=== PATIENT | female | born 1985 ===

== ENCOUNTER 2018-08-19 17:00 | Inpatient (IN) | payer MEDICAID ==
[2018-08-19 17:56] VITALS: BMI 37.1
[2018-08-19 18:13] LABS: BASO % 0.4 % (0.0-2.0); EOS # 0.2 K/uL (0.0-0.7); EOS % 2.1 % (0.0-4.0); HEMOGLOBIN 9.6 g/dL (12.0-16.0); LYMPH # 1.5 K/uL (1.0-4.3); LYMPH % 19.3 % (20.0-40.0); MEAN CELL VOLUME 74.1 fl (81.0-99.0); MEAN CORPUSCULAR HEMOGLOBIN 22.7 pg (27.0-31.0); MEAN CORPUSCULAR HGB CONC 30.7 g/dL (33.0-37.0); MEAN PLATELET VOLUME 10.2 fl (7.2-11.7); MONO # 0.9 K/uL (0.0-0.8); MONO % 11.2 % (0.0-10.0); NEUT # 5.1 K/uL (1.8-7.0); NRBC % 0.1 % (0.0-0.0); RBC 4.22 Mil/uL (3.80-5.20); RED CELL DISTRIBUTION WIDTH 17.8 % (11.5-14.5); WHITE BLOOD COUNT 7.6 K/uL (4.8-10.8)
[2018-08-19] MEDS: Lactated Ringer's 1,000 ML IV SCH (18:30)
[2018-08-19] MEDS ORDERED: Fentanyl/Bupivacaine HCl 250 ML EPI ONE (20:57)
--- NOTE | 2018-08-19 23:41 | CP.PCM.CON ---
History of Present Illness - History of Present Illness History of Present Illness: Attending: Dominik Simmons MD Reason for Consult: Abnormal EKG Chief complaint: Patient in active labor The patient was seen and examined In the L&D Unit HPI: This is a 32 years old female with medical hx of Hyperthyroidism not on tr eatment, has a 39 weeks Primipara in labor and partially dilated. She is on the court recording monitor which showed an irregular rhythm. A 12 lead EKG was done, which I was consulted to analyze. This showed a normal sinus rhythm with multiple PVC in bigeminy and couplets. The Patient referred no chest pain, palpitation nor SOB. No headache, dizziness, nausea nor vomits. Decision was made by Dr Zhong to Consult with the patch sander. PMH: Hyperthyroidism , not on treatment; PSH: Denies SH: Never smoked, no illegal drug use, No Alcohol FH: States, No known medical hx Allergies: NKDA Medication: Reviewed Review of Systems - Constitutional Constitutional: absent: Anorexia, Chills, Fatigue, Fever, Headache, Malaise - EENT Eyes: absent: Blurred Vision, Diplopia, Floaters, Requires Corrective Lenses, Spots in Vision Ears: absent: Decreased Hearing, Ear Discharge, Tinnitus Nose/Mouth/Throat: absent: Epistaxis, Nasal Congestion, Nasal Discharge, Sinus Pain, Sinus Pressure - Cardiovascular Cardiovascular: absent: Chest Pain, Dyspnea, Edema - Respiratory Respiratory: absent: Cough, Dyspnea, Wheezing, Stridor - Gastrointestinal Gastrointestinal: Abdominal Pain. absent: Constipation, Diarrhea - Genitourinary Genitourinary: absent: Dysuria, Flank Pain, Urinary Frequency - Musculoskeletal Musculoskeletal: absent: Arthralgias - Integumentary Integumentary: absent: Pruritus, Rash, Sores, Striae, Swelling - Neurological Neurological: absent: Confusion, Focal Weakness, Weakness - Psychiatric Psychiatric: absent: Anxiety, Depression, Panic Attacks - Endocrine Endocrine: absent: Palpitations, Polydipsia, Polyphagia, Polyuria - Hematologic/Lymphatic Hematologic: absent: Easy Bleeding, Easy Bruising Past Patient History - Past Medical History & Family History Past Medical History?: Yes - Past Social History Smoking Status: Never Smoked Chewing Tobacco Use: No Cigar Use: No Alcohol: None Drugs: Denies - CARDIAC Hx Cardiac Disorders: No - PULMONARY Hx Respiratory Disorders: No - NEUROLOGICAL Hx Neurological Disorder: No - HEENT Hx HEENT Problems: No - RENAL Hx Chronic Kidney Disease: No - ENDOCRINE/METABOLIC Hx Hyperthyroidism: Yes (Not on treatment) - HEMATOLOGICAL/ONCOLOGICAL Hx Blood Disorders: No - INTEGUMENTARY Hx Dermatological Problems: No - MUSCULOSKELETAL/RHEUMATOLOGICAL Hx Musculoskeletal Disorders: No - GASTROINTESTINAL Hx Gastrointestinal Disorders: No - GENITOURINARY/GYNECOLOGICAL Hx Genitourinary Disorders: No - PSYCHIATRIC Hx Psychophysiologic Disorder: No - SURGICAL HISTORY Hx Surgeries: No Meds Allergies/Adverse Reactions: Allergies Allergy/AdvReac Type Severity Reaction Status Date / Time No Known Allergies Allergy Verified 08/19/18 17:27 - Medications Medications: Current Medications Lactated Ringer's (Lactated Ringer's) 1,000 mls @ 125 mls/hr IV .Q8H GARIMA Last Admin: 08/19/18 18:30 Dose: 125 mls/hr Fentanyl/Bupivacaine HCl (Marcaine 0.125% With Fentanyl 2 Mcg/Ml Premix) 250 mls @ 10 mls/hr EPI .Q24H ONE Stop: 08/20/18 20:56 Physical Exam - Constitutional Appears: No Acute Distress - Head Exam Head Exam: ATRAUMATIC, NORMAL INSPECTION, NORMOCEPHALIC - Eye Exam Eye Exam: EOMI Pupil Exam: NORMAL ACCOMODATION, PERRL - ENT Exam ENT Exam: Mucous Membranes Moist, Normal Exam, Normal External Ear Exam - Neck Exam Neck exam: Positive for: Full Rom, Normal Inspection. Negative for: Lymphadenopathy, Tenderness - Respiratory Exam Respiratory Exam: Clear to Auscultation Bilateral. absent: Rales, Rhonchi, Wheezes - Cardiovascular Exam Cardiovascular Exam: REGULAR RHYTHM, RRR, +S1, +S2 - GI/Abdominal Exam Additional comments: Full abdomen with monitor attached - Rectal Exam Rectal Exam: Deferred - Extremities Exam Extremities exam: Positive for: full ROM, normal inspection - Back Exam Back exam: NORMAL INSPECTION. absent: CVA tenderness (L), CVA tenderness (R) - Neurological Exam Neurological exam: Alert, CN II-XII Intact, Oriented x3, Reflexes Normal - Psychiatric Exam Psychiatric exam: Normal Affect, Normal Mood - Skin Skin Exam: Dry, Normal Color, Warm Results - Labs Result Diagrams: 08/20/18 02:28 08/20/18 02:28 Labs: Laboratory Results - last 24 hr 08/19/18 08/19/18 08/19/18 17:49 17:49 17:49 WBC 7.6 RBC 4.22 Hgb 9.6 L Hct 31.3 L MCV 74.1 L MCH 22.7 L MCHC 30.7 L RDW 17.8 H Plt Count 185 MPV 10.2 Neut % (Auto) 67.0 Lymph % (Auto) 19.3 L [place] % (Auto) 11.2 H Eos % (Auto) 2.1 Baso % (Auto) 0.4 Neut # (Auto) 5.1 Lymph # (Auto) 1.5 [place] # (Auto) 0.9 H Eos # (Auto) 0.2 Baso # (Auto) 0.0 HIV-1 Ab Rapid Screen Non reactive Blood Type O POSITIVE Blood Type Confirm Antibody Screen Negative BBK History Checked No verified bt 08/19/18 18:55 WBC RBC Hgb Hct MCV MCH MCHC RDW Plt Count MPV Neut % (Auto) Lymph % (Auto) [place] % (Auto) Eos % (Auto) Baso % (Auto) Neut # (Auto) Lymph # (Auto) [place] # (Auto) Eos # (Auto) Baso # (Auto) HIV-1 Ab Rapid Screen Blood Type Blood Type Confirm O POSITIVE Antibody Screen BBK History Checked - EKG Data EKG comments: 08/19/2018 Sinus Rhythm 98/min with multiple PVC in bigemini and couplets Assessment & Plan - Assessment and Plan (Free Text) Assessment: #. Cardiac Arrhythmia with Ventricle bigeminy and couplets #. Microcytic Anemia #. Full Term in labor Plan: 32 years old female with medical hx of Hyperthyroidism not on treatment,with 39 weeks in labor. I was consulted because of an abnormal EKG. This showed a sinus rhythm with multiple PVC in bigeminy and couplets. The Patient referred no chest pain, palpitation nor SOB. No headache, dizziness, nausea nor vomits. Decision was made by Dr Zhong to Consult with the patch sander. #. Cardiac Arrhythmia with Ventricle bigeminy and couplets. r/o CAD, Cardiomyopathy, Electrolyte imbalance, Medication, anxiety. I discussed the findings on the EKG with Dr Zhong and Dr Gleason. Dr Overton advised that as the patient's vital signs were stable, that the patient should should be taken imme diately for a Cesarian Section, and be transferred to the ICU or telemetry Unit post surgery. - Consult Dr Gleason patch sander. - Oxygen - Transfer to ICU post delivery - CMP/ CBC/ PT/PTT/TSH/magnesium /Phosphorous; - EKG/ ECHO for wall motion and chamber size, #. Microcytic Anemia. Probably iron deficiency anemia - Iron panel - follow Hb #. Full Term in labor - Labour and delivery team Management #.DVT prophylaxis with SCD and lovenox. #. Code Status: Full - Date & Time Date: 08/19/18 Time: 23:41
[2018-08-19] MEDS ORDERED: cefOXitin IV 1 gm in Dextrose 1 GM/50 ML BAG IVPB ONE (23:46)
[2018-08-19] MEDS ORDERED: ePHEDrine 50 mg/ml Inj ONE (23:55)
[2018-08-19] MEDS ORDERED: Phenylephrine 10 mg/ml Inj ONE (23:55)
[2018-08-19] MEDS ORDERED: Morphine 1 mg/ml preservative-free Inj(Duramorph) ONE (23:55)
[2018-08-19] MEDS ORDERED: Lidocaine 2% PF (10 ml) Amp ONE (23:56)
--- NOTE | 2018-08-20 00:07 | OBPN ---
Datetime: 08/19/2018 23:54 IP Procedures Other: EKG/medical consult/flash welding machine operator consult IP Progress Impression Other: maternal abnormal EKG IP Informed Consent Obtain: Section Delivery IP Progress Plan: Deliver- Section Membranes, Provider: Ruptured Contraction Comments Provider: irregular FHR - Baseline A Provider: 150 Gestation - Est Wks by US: 39.2 Presentation-Admit: cephalic IP Progress Note Comment: maternal pulse was irregular and EKG done showing multiple and persistent PVC's and sinus arrythmias and medical consult given and flash welding machine operator consult obtained and both sugge st to deliver now by C/S since during full labor cardiac status may deteriorate Discussed this with p atient and explained the situation and she and her partner decided to have C/S done now Pt explained the procedure and possible risks and complication and elects to have abdominal delivery at this time Informed consent was obtain and pt after C/S will go to Telemetry or ICU for recovery and monitoring cardiac status. Vital Signs Provider: Reviewed Vital Signs Provider Details: Abnormal maternal EKG NICHD Accel Fetus A IP Provider: 10X10 NICHD Variability Prov Fetus A: Moderate 6-25bpm Dilatation, Provider: 4 Effacement, Provider: 80 Station, Provider: -2
[2018-08-20] MEDS ORDERED: Lidocaine 2% MPF (5 ml) Inj ONE (00:10)
[2018-08-20] MEDS ORDERED: OXYTOCIN/0.9 % NS 20 UNIT/1,000 ML BAG IV ONE ×2 (00:19→02:07)
[2018-08-20] MEDS ORDERED: Oxytocin 30 UNIT 30 UNITS/500 ML BAG IV ONE ×2 (00:19→00:51)
[2018-08-20] MEDS: cefOXitin IV 1 gm in Dextrose 1 GM/50 ML BAG IVPB SCH ×3 (00:20→17:11)
[2018-08-20] MEDS ORDERED: DiphenhydrAMINE 50 mg/ml Inj IVP PRN (01:51)
--- NOTE | 2018-08-20 02:03 | OBDS ---
MATERNAL INFORMATION Estimated Blood Loss (ml): 850cc Maternal Complications: Other Other Maternal Complications: abnormal maternal EKG/ persistent PVC Provider Comments: see Dictated surgeons note LABOR SUMMARY EDC: 08/24/2018 00:00 LABOR INFORMATION Reason for Induction: Not Applicable Onset of Labor: 08/19/2018 15:30 Group B Beta Strep: Negative Steroids Given: None Reason Steroids Not Administered: Not Applicable MEMBRANES Membranes Rupture Method: Spontaneous VAGINAL DELIVERY Episiotomy: None Laceration Extension: N/A Laceration Type: None Laceration Repair: Not Applicable Sponge Count Correct: Yes Sharps Count Correct: Yes Count Comment: count correct x4 CSECTION DELIVERY Primary Indication: Maternal abnormal EKG/persistent maternal PVC Secondary Indication: maternal request CSection Incision: Lower Uterine Transverse Uterine Closure: Double-layer closure BABY A INFORMATION Forceps: N/A Shoulder Dystocia : No PRESENTATION/POSITION BABY A Presentation: cephalic Cephalic Presentation: Vertex Vertex Position: Left Occipital Posterior Breech Presentation: N/A
[2018-08-20 02:34] LABS: BASO # 0.1 K/uL (0.0-0.2); BASO % 0.9 % (0.0-2.0); EOS # 0.1 K/uL (0.0-0.7); EOS % 0.9 % (0.0-4.0); HEMOGLOBIN 8.8 g/dL (12.0-16.0); LYMPH # 1.2 K/uL (1.0-4.3); LYMPH % 9.3 % (20.0-40.0); MEAN CELL VOLUME 76.6 fl (81.0-99.0); MEAN CORPUSCULAR HEMOGLOBIN 22.9 pg (27.0-31.0); MEAN CORPUSCULAR HGB CONC 29.9 g/dL (33.0-37.0); MEAN PLATELET VOLUME 10.1 fl (7.2-11.7); MONO # 0.9 K/uL (0.0-0.8); MONO % 7.2 % (0.0-10.0); NEUT # 10.6 K/uL (1.8-7.0); NEUT % 81.7 % (50.0-75.0); PLATELET COUNT 155 K/uL (130-400); RBC 3.86 Mil/uL (3.80-5.20)
[2018-08-20 02:37] LABS: PROTHROMBIN TIME 11.3 Seconds (9.8-13.1)
[2018-08-20 02:40] LABS: PARTIAL THROMBOPLASTIN TIME 20.8 Seconds (25.6-37.1)
[2018-08-20 02:41] LABS: ALB/GLOB RATIO 0.8 (1.0-2.1); ALBUMIN 2.9 g/dL (3.5-5.0); ALT/SGPT 13 U/L (9-52); AST/SGOT 22 U/L (14-36); BLOOD UREA NITROGEN 7 mg/dl (7-17); CALCIUM 8.2 mg/dL (8.4-10.2); GFR NON-AFRICAN AMERICAN > 60
[2018-08-20 02:49] LABS: IRON 20 ug/dL (37-170)
[2018-08-20 02:59] LABS: % IRON SATURATION 4 % (20-55); TOTAL IRON BINDING CAPACITY 471 ug/dL (250-450)
[2018-08-20 04:52] LABS: BANDS 1 % (0-2); LYMPHOCYTE 8 % (20-50); MONOCYTE 6 % (0-10); NEUTROPHIL 85 % (42-75); TOTAL CELLS COUNTED 100
[2018-08-20 04:53] LABS: PLATELET ESTIMATE NORMAL (NORMAL)
[2018-08-20 04:54] LABS: ACANTHOCYTES SLIGHT; ANISOCYTOSIS SLIGHT; HYPOCHROMIC MODERATE
[2018-08-20] MEDS ORDERED: Magnesium Sulfate 2 gm/50 ml 2 GM/50 ML BAG IVPB ONE (07:15)
--- NOTE | 2018-08-20 07:54 | OBPPN ---
Datetime: 08/20/2018 07:47 PP Pain Prov: Within normal limits PP Pain Prov comment: no SOB, chest or leg pains PP Nausea Prov: Denies PP BM Prov: No PP Breasts Prov: Normal PP Heart Prov: Abnormal PP Lungs Prov: Normal PP Abdomen/Uterus Prov: Abnormal PP Lochia Prov: Normal PP Vulva/Perineum Prov: Normal PP CVA Tenderness Prov: Normal PP Extremities Prov: Normal PP C/S Incision Prov: Normal PP Progress Prov: Normal PP Comments Phys Exam Prov: breast not engorged, soft NT; Abd soft not distended fundus firm at umb Dressing intact no sign of active bleeding Ext no calf tenderness Venodyne in place PP Plan Prov: Continue present management PP Impression Other Prov: maternal persistent PVC's possible cardiomyopathy PP Plan Other Prov: evaluation by local company tanker driver PP Progress Note Prov: Continue po care and cardiology evaluation Vital Signs Provider PP: Reviewed
[2018-08-20] MEDS: Oxycodone/Acetaminophen 5/325 mg Tab PO PRN ×3 (08:28→19:12)
--- NOTE | 2018-08-20 09:22 | CP.PCM.CON ---
History of Present Illness - History of Present Illness History of Present Illness: This 32-year-old prima para underwent a section after she was found to have frequent ventricular ectopy on an electrocardiogram as she went into labor. There were occasional ventricular couplets. There is no prior history of cardiac illness prior to her and her describes an extremely active lifestyle which her work required. There is no prior history of rheumatic heart disease or palpitations or symptoms of congestive cardiac failure. The patient was not on any medications and had not required any hospitalization. One of her grandmothers had cardiac illness though she did not because of it. Otherwise there is no family history of vascular disease. Physical examination shows a young -[place] female who has recently undergone a section. She was alert awake coherent afebrile. Her heart rate was 80 bpm regular and her blood pressure was 124/74 mmHg. Her jugular venous pressure was not elevated and there was no edema over lower extremities. The pedal pulses were well felt. First and second heart sounds were normal. There was no murmur or gallop. No rales were audible. Her electrocardiogram at midnight showed sinus rhythm with frequent immature ventricular beats including a single couplet. Her cardiogram this morning shows sinus rhythm with ventricular ectopy. Otherwise the electric cardiogram did not show any abnormality. Her lab data was noted. She had microcytic hypochromic anemia with normal TSH. Impression: Frequent ventricular ectopy without any evidence of underlying cardiovascular disease. The patient will undergo an echocardiogram to evaluate her left ventricular systolic function. In absence of LV dysfunction her ventricular ectopy will have a benign significance and no further intervention would be required. Past Patient History - Past Medical History & Family History Past Medical History?: Yes - Past Social History Smoking Status: Never Smoked Chewing Tobacco Use: No Cigar Use: No Alcohol: None Drugs: Denies - CARDIAC Hx Cardiac Disorders: No - PULMONARY Hx Respiratory Disorders: No - NEUROLOGICAL Hx Neurological Disorder: No - HEENT Hx HEENT Problems: No - RENAL Hx Chronic Kidney Disease: No - ENDOCRINE/METABOLIC Hx Hyperthyroidism: Yes (Not on treatment) - HEMATOLOGICAL/ONCOLOGICAL Hx Blood Disorders: No - INTEGUMENTARY Hx Dermatological Problems: No - MUSCULOSKELETAL/RHEUMATOLOGICAL Hx Musculoskeletal Disorders: No - GASTROINTESTINAL Hx Gastrointestinal Disorders: No - GENITOURINARY/GYNECOLOGICAL Hx Genitourinary Disorders: No - PSYCHIATRIC Hx Psychophysiologic Disorder: No - SURGICAL HISTORY Hx Surgeries: No - ANESTHESIA Hx Anesthesia: No Hx Anesthesia Reactions: No Meds Allergies/Adverse Reactions: Allergies Allergy/AdvReac Type Severity Reaction Status Date / Time No Known Allergies Allergy Verified 08/19/18 17:27 - Medications Medications: Current Medications Diphenhydramine HCl (Benadryl) 50 mg IVP Q6 PRN PRN Reason: Itching / Pruritus Lactated Ringer's (Lactated Ringer's) 1,000 mls @ 125 mls/hr IV .Q8H [facility] Last Admin: 08/19/18 18:30 Dose: 125 mls/hr Fentanyl/Bupivacaine HCl (Marcaine 0.125% With Fentanyl 2 Mcg/Ml Premix) 250 mls @ 10 mls/hr EPI .Q24H ONE Stop: 08/20/18 20:56 Cefoxitin Sodium (Mefoxin Iv 1 Gm Duplex) 1 gm in 50 mls @ 50 mls/hr IVPB Q8 GARIMA; Protocol Last Admin: 08/20/18 00:20 Dose: 50 mls/hr OXYTOCIN/0.9 % NS (Oxytocin 20 Unit/1000 Ml-Ns) 20 unit in 1,000 mls @ 125 mls/hr IV .Q8H ONE Stop: 08/20/18 10:06 Last Admin: 08/20/18 02:22 Dose: 125 mls/hr Ibuprofen (Motrin Tab) 600 mg PO Q6H PRN PRN Reason: Pain, Mild (1-3) Ketorolac Tromethamine (Toradol) 30 mg IVP Q6 PRN PRN Reason: Pain, moderate (4-7) Last Admin: 08/20/18 02:52 Dose: 30 mg Ondansetron HCl (Zofran Inj) 4 mg IVP Q6 PRN PRN Reason: Nausea/Vomiting Oxycodone/Acetaminophen (Percocet 5/325 Mg Tab) 1 tab PO Q4 PRN PRN Reason: Pain, moderate (4-7) Stop: 08/23/18 02:08 Last Admin: 08/20/18 08:28 Dose: 1 tab Results - Vital Signs Recent Vital Signs: Last Vital Signs Temp 98.2 F 08/20/18 08:00 Pulse 89 08/20/18 08:00 Resp 19 08/20/18 08:00 BP 112/65 08/20/18 08:00 Pulse Ox 100 08/20/18 08:00 - Labs Result Diagrams: 08/20/18 02:28 08/20/18 02:28 Labs: Laboratory Results - last 24 hr 08/19/18 08/19/18 08/19/18 17:49 17:49 17:49 WBC 7.6 RBC 4.22 Hgb 9.6 L Hct 31.3 L MCV 74.1 L MCH 22.7 L MCHC 30.7 L RDW 17.8 H Plt Count 185 MPV 10.2 Neut % (Auto) 67.0 Lymph % (Auto) 19.3 L [place] % (Auto) 11.2 H Eos % (Auto) 2.1 Baso % (Auto) 0.4 Neut # (Auto) 5.1 Lymph # (Auto) 1.5 [place] # (Auto) 0.9 H Eos # (Auto) 0.2 Baso # (Auto) 0.0 Neutrophils % (Manual) Band Neutrophils % Lymphocytes % (Manual) Monocytes % (Manual) Platelet Estimate Hypochromasia (manual) Anisocytosis (manual) Acanthocytes (Spur) PT INR APTT Sodium Potassium Chloride Carbon Dioxide Anion Gap BUN Creatinine Est GFR ( Amer) Est GFR (Non-Af Amer) Random Glucose Calcium Phosphorus Magnesium Iron TIBC % Saturation Total Bilirubin AST ALT Alkaline Phosphatase Total Protein Albumin Globulin Albumin/Globulin Ratio TSH 3rd Generation HIV-1 Ab Rapid Screen Non reactive Blood Type O POSITIVE Blood Type Confirm Antibody Screen Negative BBK History Checked No verified bt 08/19/18 08/20/18 08/20/18 18:55 02:28 02:28 WBC 13.0 H D RBC 3.86 Hgb 8.8 L Hct 29.6 L MCV 76.6 L D MCH 22.9 L MCHC 29.9 L RDW 18.0 H Plt Count 155 MPV 10.1 Neut % (Auto) 81.7 H Lymph % (Auto) 9.3 L [place] % (Auto) 7.2 Eos % (Auto) 0.9 Baso % (Auto) 0.9 Neut # (Auto) 10.6 H Lymph # (Auto) 1.2 [place] # (Auto) 0.9 H Eos # (Auto) 0.1 Baso # (Auto) 0.1 Neutrophils % (Manual) 85 H Band Neutrophils % 1 Lymphocytes % (Manual) 8 L Monocytes % (Manual) 6 Platelet Estimate Normal Hypochromasia (manual) Moderate Anisocytosis (manual) Slight Acanthocytes (Spur) Slight PT INR APTT Sodium 134 Potassium 3.7 Chloride 109 H Carbon Dioxide 18 L Anion Gap 11 BUN 7 Creatinine 0.5 L Est GFR ( Amer) > 60 Est GFR (Non-Af Amer) > 60 Random Glucose 101 Calcium 8.2 L Phosphorus 4.3 Magnesium 1.5 L Iron TIBC % Saturation Total Bilirubin 0.2 AST 22 ALT 13 Alkaline Phosphatase 155 H Total Protein 6.2 L Albumin 2.9 L Globulin 3.4 Albumin/Globulin Ratio 0.8 L TSH 3rd Generation 1.64 HIV-1 Ab Rapid Screen Blood Type Blood Type Confirm O POSITIVE Antibody Screen BBK History Checked 08/20/18 08/20/18 02:28 02:28 WBC RBC Hgb Hct MCV MCH MCHC RDW Plt Count MPV Neut % (Auto) Lymph % (Auto) [place] % (Auto) Eos % (Auto) Baso % (Auto) Neut # (Auto) Lymph # (Auto) [place] # (Auto) Eos # (Auto) Baso # (Auto) Neutrophils % (Manual) Band Neutrophils % Lymphocytes % (Manual) Monocytes % (Manual) Platelet Estimate Hypochromasia (manual) Anisocytosis (manual) Acanthocytes (Spur) PT 11.3 INR 1.0 APTT 20.8 L Sodium Potassium Chloride Carbon Dioxide Anion Gap BUN Creatinine Est GFR ( Amer) Est GFR (Non-Af Amer) Random Glucose Calcium Phosphorus Magnesium Iron 20 L TIBC 471 H % Saturation 4 L Total Bilirubin AST ALT Alkaline Phosphatase Total Protein Albumin Globulin Albumin/Globulin Ratio TSH 3rd Generation HIV-1 Ab Rapid Screen Blood Type Blood Type Confirm Antibody Screen BBK History Checked
--- NOTE | 2018-08-20 09:44 | CP.PCM.PCO ---
Physician Communication Note - Physician Communication Note Physician Communication Note: PCP is Dr. Alex Mason in [place], service changed to Dr. Mark Vela.
[2018-08-20] MEDS: Lactated Ringer's 1,000 ML IV SCH ×3 (10:56→19:50)
--- NOTE | 2018-08-20 14:34 | CARD ---
APPROVED REPORT Date of service: 08/20/2018 EKG Measurement Heart [id number] <Conclusion> Sinus rhythm with frequent premature ventricular complexes in a pattern of bigeminy Abnormal Electrocardiogram
--- NOTE | 2018-08-20 14:35 | CARD ---
APPROVED REPORT Date of service: 08/19/2018 EKG Measurement Heart [id number] OR [id number] <Conclusion> Sinus rhythm with frequent and consecutive premature ventricular complexes Abnormal ECG
[2018-08-20] MEDS ORDERED: Oxycodone/Acetaminophen 5/325 mg Tab PO STA (15:17)
--- NOTE | 2018-08-20 19:24 | PN ---
DATE: 08/20/2018 LOCATION: The patient in ICU bed 431. TIME SPENT: 35 minutes. The patient seen and evaluated at the bedside. Past medical, surgical, family, social history reviewed. Case was discussed in multidisciplinary ICU rounds this morning. Events since admission noted, a 32-year-old female para 0, 1 now 30 weeks gestation in active labor noted to have bigeminy with couplets seen by Dr. Uriel Meza. The patient underwent successfully and admitted to ICU overnight, rhythm sinus with ectopic, normotensive, afebrile. Denies chest pain or palpitation. No shortness of breath. No abdominal discomfort except for the incisional pain. PAST MEDICAL HISTORY: Significant for thyroid disease. No history of hypertension, diabetes or coronary artery disease. PHYSICAL EXAMINATION: GENERAL: Young well-built female in no distress. VITAL SIGNS: Temperature 98.2, heart rate 89 regular with ectopic, blood pressure 112/65, mean arterial pressure 80, respiratory rate 19 to 27 thoracoabdominal saturation 100% on oxygen 2 liters nasal cannula. Intake 625, output 350, positive balance 275. Weight 230 pounds. HEAD, EYES, EARS, NOSE AND THROAT: Pupils reactive. Conjunctivae pink. Sclera white. NECK: Supple. Trachea is central. CHEST; Bilateral breath sounds. Clear to auscultation. HEART: Rhythm regular. S1 and S2 normal intensity. No S3, S4 or gallop. No audible murmur. ABDOMEN: Bowel sounds present, soft. Liver and spleen are not palpable. Bladder not distended. EXTREMITIES: Unremarkable. NEUROLOGIC: Nonfocal. CURRENT MEDICATIONS: Cefoxitin 1 gm every 8 hours x3 doses, Benadryl 50 mg IV every 6 hours p.r.n. for itching pruritus, fentanyl/bupivacaine/Marcaine 0.125% with fentanyl 2 mcg at 10 mL per hour, Motrin 600 mg p.o. every 6, hours, Toradol 30 mg IV every 6 hours p.r.n., Ringer's Lactate 1000 mL at 125 mL per hour, Zofran 4 mg IV every 6 hours, Percocet 5/325 mg p.o. every 4 hours. IMPRESSION: A 32-year-old normal female status post section noted to have ectopic with couplets during active labor, status post section, currently hemodynamically stable ,still with couplets, normotensive. Seen by cardiology consult noted recommendation. Echocardiogram pending. Post section at [facility] within normal limits. Anemia secondary to hemodilution and/or iron deficiency on iron supplement. We will start on deep venous thrombosis prophylaxis once cleared by WORKERS COMPENSATION CLAIMS EXAMINER. Continue IV hydration. Keep head about 30 degree up needed for postop incisional pain. Cesario Musa MD
[2018-08-21] MEDS: cefOXitin IV 1 gm in Dextrose 1 GM/50 ML BAG IVPB SCH (00:59)
[2018-08-21] MEDS: Oxycodone/Acetaminophen 5/325 mg Tab PO PRN ×2 (02:31→08:46)
[2018-08-21] MEDS: Lactated Ringer's 1,000 ML IV SCH (04:11)
[2018-08-21 05:32] LABS: BASO % 0.2 % (0.0-2.0); EOS # 0.1 K/uL (0.0-0.7); EOS % 1.2 % (0.0-4.0); HEMOGLOBIN 7.5 g/dL (12.0-16.0); LYMPH # 1.3 K/uL (1.0-4.3); LYMPH % 10.2 % (20.0-40.0); MEAN CELL VOLUME 74.3 fl (81.0-99.0); MEAN CORPUSCULAR HEMOGLOBIN 22.5 pg (27.0-31.0); MEAN CORPUSCULAR HGB CONC 30.3 g/dL (33.0-37.0); MEAN PLATELET VOLUME 9.9 fl (7.2-11.7); MONO # 1.3 K/uL (0.0-0.8); MONO % 10.2 % (0.0-10.0); NEUT # 9.7 K/uL (1.8-7.0); NEUT % 78.2 % (50.0-75.0); RBC 3.32 Mil/uL (3.80-5.20); RED CELL DISTRIBUTION WIDTH 17.6 % (11.5-14.5); WHITE BLOOD COUNT 12.5 K/uL (4.8-10.8)
[2018-08-21 05:42] LABS: ALB/GLOB RATIO 0.8 (1.0-2.1); ALBUMIN 2.5 g/dL (3.5-5.0); ALT/SGPT 26 U/L (9-52); AST/SGOT 24 U/L (14-36); BLOOD UREA NITROGEN 4 mg/dl (7-17); CALCIUM 8.1 mg/dL (8.4-10.2); GFR NON-AFRICAN AMERICAN > 60
--- NOTE | 2018-08-21 07:45 | CARD ---
APPROVED REPORT Date of service: 08/20/2018 EXAM: Two-dimensional and M-mode echocardiogram with Doppler and color Doppler. Other Information Quality : GoodRhythm : NSR INDICATION Abnormal EKG/Arrhythmia 2D DIMENSIONS IVSd1.14 (0.7-1.1cm)LVDd5.57 (3.9-5.9cm) LVOT Diameter2.21 (1.8-2.4cm)PWd1.37 (0.7-1.1cm) IVSs1.10 (0.8-1.2cm)LVDs4.52 (2.5-4.0cm) FS (%) 18.9 %PWs1.46 (0.8-1.2cm) M-Mode DIMENSIONS Left Atrium (MM)3.71 (2.5-4.0cm)IVSd1.21 (0.7-1.1cm) Aortic Root3.21 (2.2-3.7cm)LVDd5.68 (4.0-5.6cm) Aortic Cusp Exc.2.24 (1.5-2.0cm)PWd1.12 (0.7-1.1cm) IVSs1.59 cmFS (%) 22 % LVDs4.44 (2.0-3.8cm)PWs1.41 cm Mitral Valve E/A ratio0.0 TDI E/Lateral E'0.0E/Medial E'0.0 Pulmonary Valve PV Peak Bttxoynd304.4cm/s LEFT VENTRICLE LV is mildly enlarged. There is mild concentric left ventricular hypertrophy. LV systolic function was mildly depressed LVEF is 40-45%. There was mild generalised hypokinesia Transmitral Doppler flow pattern is Grade I-abnormal relaxation pattern. RIGHT VENTRICLE The right ventricle is normal size. There is normal right ventricular wall thickness. The right ventricular systolic function is normal. ATRIA The left atrium size is normal. The right atrium size is normal. AORTIC VALVE The aortic valve is normal in structure. No aortic regurgitation is present. There is no aortic valvular stenosis. MITRAL VALVE The mitral valve is normal in structure. There is no evidence of mitral valve prolapse. There is no mitral valve stenosis. Mitral regurgitation is mild. TRICUSPID VALVE The tricuspid valve is normal in structure. There is no tricuspid valve regurgitation noted. PULMONIC VALVE The pulmonary valve is normal in structure. There is no pulmonic valvular regurgitation. GREAT VESSELS The aortic root is normal in size. The IVC is normal in size and collapses >50% with inspiration. PERICARDIAL EFFUSION The pericardium appears normal. <Conclusion> LV is mildly enlarged. There is mild concentric left ventricular hypertrophy. There was mild generalised hypokinesia LV systolic function was mildly depressed LVEF is 40-45%. Transmitral Doppler flow pattern is Grade I-abnormal relaxation pattern.
--- NOTE | 2018-08-21 08:28 | CP.CCUPN ---
<Neftaly Mtz - Last Filed: 08/21/18 10:10> CCU Subjective - Physician Review Subjective (Free Text): 08/21/18 09:57 Pt seen and examined at bedside this AM. Franki significant overnight events. Tolerating PO diet. Reports mild abdominal tenderness at site of incision s/p c/s. Pt AAOx 3. Vaginal bleed like menses. Denies CP/SOB/N/V. Planned to breast feed. CCU Objective - Vital Signs / Intake & Output Vital Signs (Last 4 hours): Vital Signs Temp Pulse Resp BP Pulse Ox 08/21/18 08:00 98.4 F 89 23 124/78 95 08/21/18 06:00 96 H 19 119/77 98 Intake and Output (Last 8hrs): Intake & Output 08/20/18 08/21/18 08/21/18 22:59 06:59 14:59 Intake Total 2475 975 Output Total 1100 2300 Balance 1375 -1325 Weight 230 lb Intake: IV 1875 875 Intake, Piggyback 200 100 Oral 400 Output: Urine 1100 2300 Urethral (Rausch) 1100 2300 Other: # Bowel Movements 0 - Physical Exam Physical Exam Limitations: Negative for: Altered Mental Status Extroacular Muscles: Positive for: EOMI Mouth: Positive for: Moist Mucous Membranes Respiratory/Chest: Positive for: Clear to Auscultation, Good Air Exchange. Negative for: Respiratory Distress, Wheezes Cardiovascular: Positive for: Other (Bigeminy) Abdomen: Positive for: Normal Bowel Sounds. Negative for: Tenderness Lower Extremity: Positive for: Normal Inspection. Negative for: CALF TENDERNESS Neurological: Positive for: GCS=15, CN II-XII Intact, Speech Normal Skin: Positive for: Warm, Dry Psychiatric: Positive for: Alert, Oriented x 3, Normal Insight, Normal Concentration - Medications Active Medications: Active Medications Generic Name Dose Route Start Last Admin Trade Name Freq PRN Reason Stop Dose Admin Diphenhydramine HCl 50 mg 08/20/18 01:51 Benadryl IVP Q6 PRN Itching / Pruritus Ibuprofen 600 mg 08/20/18 02:07 Motrin Tab PO Q6H PRN Pain, Mild (1-3) Ketorolac Tromethamine 30 mg 08/20/18 01:52 08/21/18 05:41 Toradol IVP 30 mg Q6 PRN Administration Pain, moderate (4-7) Ondansetron HCl 4 mg 08/20/18 01:51 Zofran Inj IVP Q6 PRN Nausea/Vomiting Oxycodone/Acetaminophen 2 tab 08/20/18 15:18 08/21/18 02:31 Percocet 5/325 Mg Tab PO 08/23/18 15:19 2 tab Q4 PRN Administration Pain, moderate (4-7) - Patient Studies Lab Studies: Lab Studies 08/21/18 08/21/18 08/20/18 Range/Units 04:35 04:35 11:35 WBC 12.5 H (4.8-10.8) K/uL RBC 3.32 L (3.80-5.20) Mil/uL Hgb 7.5 L (12.0-16.0) g/dL Hct 24.6 L (34.0-47.0) % MCV 74.3 L D (81.0-99.0) fl MCH 22.5 L (27.0-31.0) pg MCHC 30.3 L (33.0-37.0) g/dL RDW 17.6 H (11.5-14.5) % Plt Count 155 (130-400) K/uL MPV 9.9 (7.2-11.7) fl Neut % (Auto) 78.2 H (50.0-75.0) % Lymph % (Auto) 10.2 L (20.0-40.0) % [place] % (Auto) 10.2 H (0.0-10.0) % Eos % (Auto) 1.2 (0.0-4.0) % Baso % (Auto) 0.2 (0.0-2.0) % Neut # (Auto) 9.7 H (1.8-7.0) K/uL Lymph # (Auto) 1.3 (1.0-4.3) K/uL [place] # (Auto) 1.3 H (0.0-0.8) K/uL Eos # (Auto) 0.1 (0.0-0.7) K/uL Baso # (Auto) 0.0 (0.0-0.2) K/uL Sodium 136 (132-148) mmol/l Potassium 3.7 (3.6-5.0) MMOL/L Chloride 109 H (98-107) mmol/L Carbon Dioxide 23 (22-30) mmol/L Anion Gap 8 L (10-20) BUN 4 L (7-17) mg/dl Creatinine 0.5 L (0.7-1.2) mg/dl Est GFR ( Amer) > 60 Est GFR (Non-Af Amer) > 60 POC Glucose (mg/dL) 105 (65-110) mg/dL Random Glucose 99 (65-105) mg/dL Calcium 8.1 L (8.4-10.2) mg/dL Phosphorus 4.2 (2.5-4.5) mg/dl Magnesium 1.6 (1.6-2.3) MG/DL Total Bilirubin 0.3 (0.2-1.3) mg/dl AST 24 (14-36) U/L ALT 26 (9-52) U/L Alkaline Phosphatase 115 (38-126) U/L Total Protein 5.6 L (6.3-8.2) G/DL Albumin 2.5 L (3.5-5.0) g/dL Globulin 3.1 (2.2-3.9) gm/dL Albumin/Globulin Ratio 0.8 L (1.0-2.1) Laboratory Results - last 24 hr 08/20/18 08/21/18 08/21/18 11:35 04:35 04:35 WBC 12.5 H RBC 3.32 L Hgb 7.5 L Hct 24.6 L MCV 74.3 L D MCH 22.5 L MCHC 30.3 L RDW 17.6 H Plt Count 155 MPV 9.9 Neut % (Auto) 78.2 H Lymph % (Auto) 10.2 L [place] % (Auto) 10.2 H Eos % (Auto) 1.2 Baso % (Auto) 0.2 Neut # (Auto) 9.7 H Lymph # (Auto) 1.3 [place] # (Auto) 1.3 H Eos # (Auto) 0.1 Baso # (Auto) 0.0 Sodium 136 Potassium 3.7 Chloride 109 H Carbon Dioxide 23 Anion Gap 8 L BUN 4 L Creatinine 0.5 L Est GFR ( Amer) > 60 Est GFR (Non-Af Amer) > 60 POC Glucose (mg/dL) 105 Random Glucose 99 Calcium 8.1 L Phosphorus 4.2 Magnesium 1.6 Total Bilirubin 0.3 AST 24 ALT 26 Alkaline Phosphatase 115 Total Protein 5.6 L Albumin 2.5 L Globulin 3.1 Albumin/Globulin Ratio 0.8 L Review of Systems - EENT Eyes: UNREMARKABLE Ears: UNREMARKABLE Nose/Mouth/Throat: UNREMARKABLE - Breasts Breasts: As Per HPI - Cardiovascular Cardiovascular: absent: Chest Pain, Chest Pain at Rest, Dyspnea - Respiratory Respiratory: absent: Cough, Dyspnea - Gastrointestinal Gastrointestinal: As Per HPI - Reproductive: Female Reproductive:Female: As Per HPI - Neurological Neurological: As Per HPI - Psychiatric Psychiatric: As Per HPI Critical Care Progress Note - Nutrition Nutrition: Nutrition Category Date Time Status Regular Diet [DIET] Diets 08/20/18 Breakfast Active Assessment/Plan - Assessment and Plan (Free Text) Assessment: 32 yo F Post op section day 1 admitted to ICU due to ECG showing ectopic with couplets. Plan: 1) Post cardiomyopathy - Ventricular bigemity - Dr. Gleason, Cardiology, on board: pt may be transferred out of ICU to post ; will start ARB + BB; Recommends follow up - ECHO: LV dysfunction with general LV wall hypokynesia; LVEF: 40-45%. - network consultant: on board for CI of new meds 2) S/p section -POD 1 -Dr. Zhong -Continue post op management -Pt tolerating po diet, 3) Anemia -POD 1 -h/h: 7.5/24.6 -Could be 2/2 IVF -Will consider Heme consult for possible fe infusion -continue Fe PO 4) DVT prophylaxis -SCDs Case dw Dr. Le Mtz MD PGY2 <Umair Lujan - Last Filed: 08/21/18 16:33> CCU Objective - Vital Signs / Intake & Output Intake and Output (Last 8hrs): Intake & Output 08/21/18 08/21/18 08/21/18 06:59 14:59 22:59 Intake Total 975 Output Total 2300 900 Balance -1325 -900 Weight 230 lb Intake: IV 875 Intake, Piggyback 100 Output: Urine 2300 900 Urethral (Rausch) 2300 500 Urine, Voided 400 - Medications Active Medications: Active Medications Generic Name Dose Route Start Last Admin Trade Name Freq PRN Reason Stop Dose Admin Carvedilol 12.5 mg 08/21/18 21:00 Coreg PO Q12 [facility] Iron Sucrose 200 mg/ Sodium 110 mls @ 0 mls/hr 08/22/18 09:00 Chloride IVPB DAILY [facility] As Directed Ibuprofen 600 mg 08/21/18 14:06 Motrin Tab PO Q6 PRN Pain, Mild (1-3) Ketorolac Tromethamine 30 mg 08/21/18 13:26 Toradol IVP Q6 PRN Pain, moderate (4-7) Losartan Potassium 50 mg 08/22/18 09:00 Cozaar PO DAILY [facility] Ondansetron HCl 4 mg 08/21/18 13:26 Zofran Inj IVP Q6 PRN Nausea/Vomiting Oxycodone/Acetaminophen 2 tab 08/21/18 13:26 Percocet 5/325 Mg Tab PO 08/23/18 15:19 Q4 PRN Pain, moderate (4-7) Oxycodone/Acetaminophen 1 tab 08/21/18 14:04 08/21/18 14:27 Percocet 5/325 Mg Tab PO 08/24/18 14:05 1 tab ONCE PRN Administration Pain, moderate (4-7) - Patient Studies Lab Studies: Lab Studies 08/21/18 08/21/18 08/21/18 Range/Units 10:04 10:04 04:35 WBC (4.8-10.8) K/uL RBC (3.80-5.20) Mil/uL Hgb (12.0-16.0) g/dL Hct (34.0-47.0) % MCV (81.0-99.0) fl MCH (27.0-31.0) pg MCHC (33.0-37.0) g/dL RDW (11.5-14.5) % Plt Count (130-400) K/uL MPV (7.2-11.7) fl Neut % (Auto) (50.0-75.0) % Lymph % (Auto) (20.0-40.0) % [place] % (Auto) (0.0-10.0) % Eos % (Auto) (0.0-4.0) % Baso % (Auto) (0.0-2.0) % Neut # (Auto) (1.8-7.0) K/uL Lymph # (Auto) (1.0-4.3) K/uL [place] # (Auto) (0.0-0.8) K/uL Eos # (Auto) (0.0-0.7) K/uL Baso # (Auto) (0.0-0.2) K/uL Sodium 136 (132-148) mmol/l Potassium 3.7 (3.6-5.0) MMOL/L Chloride 109 H (98-107) mmol/L Carbon Dioxide 23 (22-30) mmol/L Anion Gap 8 L (10-20) BUN 4 L (7-17) mg/dl Creatinine 0.5 L (0.7-1.2) mg/dl Est GFR ( Amer) > 60 Est GFR (Non-Af Amer) > 60 POC Glucose (mg/dL) (65-110) mg/dL Random Glucose 99 (65-105) mg/dL Calcium 8.1 L (8.4-10.2) mg/dL Phosphorus 4.2 (2.5-4.5) mg/dl Magnesium 1.6 (1.6-2.3) MG/DL Total Bilirubin 0.3 (0.2-1.3) mg/dl AST 24 (14-36) U/L ALT 26 (9-52) U/L Alkaline Phosphatase 115 (38-126) U/L Total Protein 5.6 L (6.3-8.2) G/DL Albumin 2.5 L (3.5-5.0) g/dL Globulin 3.1 (2.2-3.9) gm/dL Albumin/Globulin Ratio 0.8 L (1.0-2.1) Free T4 0.76 L (0.78-2.19) ng/dL Free T3 pg/mL 2.69 L (2.77-5.27) pg/mL 08/21/18 08/20/18 Range/Units 04:35 11:35 WBC 12.5 H (4.8-10.8) K/uL RBC 3.32 L (3.80-5.20) Mil/uL Hgb 7.5 L (12.0-16.0) g/dL Hct 24.6 L (34.0-47.0) % MCV 74.3 L D (81.0-99.0) fl MCH 22.5 L (27.0-31.0) pg MCHC 30.3 L (33.0-37.0) g/dL RDW 17.6 H (11.5-14.5) % Plt Count 155 (130-400) K/uL MPV 9.9 (7.2-11.7) fl Neut % (Auto) 78.2 H (50.0-75.0) % Lymph % (Auto) 10.2 L (20.0-40.0) % [place] % (Auto) 10.2 H (0.0-10.0) % Eos % (Auto) 1.2 (0.0-4.0) % Baso % (Auto) 0.2 (0.0-2.0) % Neut # (Auto) 9.7 H (1.8-7.0) K/uL Lymph # (Auto) 1.3 (1.0-4.3) K/uL [place] # (Auto) 1.3 H (0.0-0.8) K/uL Eos # (Auto) 0.1 (0.0-0.7) K/uL Baso # (Auto) 0.0 (0.0-0.2) K/uL Sodium (132-148) mmol/l Potassium (3.6-5.0) MMOL/L Chloride (98-107) mmol/L Carbon Dioxide (22-30) mmol/L Anion Gap (10-20) BUN (7-17) mg/dl Creatinine (0.7-1.2) mg/dl Est GFR ( Amer) Est GFR (Non-Af Amer) POC Glucose (mg/dL) 105 (65-110) mg/dL Random Glucose (65-105) mg/dL Calcium (8.4-10.2) mg/dL Phosphorus (2.5-4.5) mg/dl Magnesium (1.6-2.3) MG/DL Total Bilirubin (0.2-1.3) mg/dl AST (14-36) U/L ALT (9-52) U/L Alkaline Phosphatase (38-126) U/L Total Protein (6.3-8.2) G/DL Albumin (3.5-5.0) g/dL Globulin (2.2-3.9) gm/dL Albumin/Globulin Ratio (1.0-2.1) Free T4 (0.78-2.19) ng/dL Free T3 pg/mL (2.77-5.27) pg/mL Laboratory Results - last 24 hr 08/20/18 08/21/18 08/21/18 11:35 04:35 04:35 WBC 12.5 H RBC 3.32 L Hgb 7.5 L Hct 24.6 L MCV 74.3 L D MCH 22.5 L MCHC 30.3 L RDW 17.6 H Plt Count 155 MPV 9.9 Neut % (Auto) 78.2 H Lymph % (Auto) 10.2 L [place] % (Auto) 10.2 H Eos % (Auto) 1.2 Baso % (Auto) 0.2 Neut # (Auto) 9.7 H Lymph # (Auto) 1.3 [place] # (Auto) 1.3 H Eos # (Auto) 0.1 Baso # (Auto) 0.0 Sodium 136 Potassium 3.7 Chloride 109 H Carbon Dioxide 23 Anion Gap 8 L BUN 4 L Creatinine 0.5 L Est GFR ( Amer) > 60 Est GFR (Non-Af Amer) > 60 POC Glucose (mg/dL) 105 Random Glucose 99 Calcium 8.1 L Phosphorus 4.2 Magnesium 1.6 Total Bilirubin 0.3 AST 24 ALT 26 Alkaline Phosphatase 115 Total Protein 5.6 L Albumin 2.5 L Globulin 3.1 Albumin/Globulin Ratio 0.8 L Free T4 Free T3 pg/mL 08/21/18 08/21/18 10:04 10:04 WBC RBC Hgb Hct MCV MCH MCHC RDW Plt Count MPV Neut % (Auto) Lymph % (Auto) [place] % (Auto) Eos % (Auto) Baso % (Auto) Neut # (Auto) Lymph # (Auto) [place] # (Auto) Eos # (Auto) Baso # (Auto) Sodium Potassium Chloride Carbon Dioxide Anion Gap BUN Creatinine Est GFR ( Amer) Est GFR (Non-Af Amer) POC Glucose (mg/dL) Random Glucose Calcium Phosphorus Magnesium Total Bilirubin AST ALT Alkaline Phosphatase Total Protein Albumin Globulin Albumin/Globulin Ratio Free T4 0.76 L Free T3 pg/mL 2.69 L Critical Care Progress Note - Nutrition Nutrition: Nutrition Category Date Time Status Regular Diet [DIET] Diets 08/20/18 Breakfast Active Attending/Attestation - Attestation I have personally seen and examined this patient.: Yes I have fully participated in the care of the patient.: Yes I have reviewed all pertinent clinical information: Yes Notes (Text): 08/21/18 16:33 Today: Tuesday, August 21, 2018 The patient was Seen/interviewed and examined by me at the bedside during ICU round, Medical records reviewed and Management issues were discussed and formulated with the house staff. Events reviewed I have reviewed all the relevant clinical, laboratory, hemodynamic, radiographic data and medications Pain issues, skin care, head of the bed elevation, glycemic control were addressed. I concur with resident's assessment and plan of care as transcribed in Dr. Mtz note.
--- NOTE | 2018-08-21 09:32 | CP.PCM.PN ---
Subjective - Date & Time of Evaluation Date of Evaluation: 08/21/18 Time of Evaluation: 09:00 - Subjective Subjective: Pt was comfortable over night Card monitor shows periods of ventricular bigeminy HR 74 BPM, BP 134/70 mm Hg No clinical signs of CHF Echocrdiogram shows LV dysfunction with generalised LV wall hypokinesia LVEF 40-45% Strongly suggestive of Post cardiomyopathy Pt to be on ARB+ Beta Blockade Mother and father agree to forego breast feeding the baby Pt will german dietary councelling for low salt diet May go out of ICU to a [facility] post floor Objective - Vital Signs/Intake and Output Vital Signs (last 24 hours): Temp Pulse Resp BP Pulse Ox 98.4 F 89 23 124/78 95 08/21/18 08:00 08/21/18 08:00 08/21/18 08:00 08/21/18 08:00 08/21/18 08:00 Intake and Output: 08/21/18 08/21/18 06:59 18:59 Intake Total 1350 Output Total 2300 Balance -950 - Medications Medications: Current Medications Carvedilol (Coreg) 12.5 mg PO Q12 [facility] Diphenhydramine HCl (Benadryl) 50 mg IVP Q6 PRN PRN Reason: Itching / Pruritus Ketorolac Tromethamine (Toradol) 30 mg IVP Q6 PRN PRN Reason: Pain, moderate (4-7) Last Admin: 08/21/18 05:41 Dose: 30 mg Losartan Potassium (Cozaar) 50 mg PO DAILY [facility] Ondansetron HCl (Zofran Inj) 4 mg IVP Q6 PRN PRN Reason: Nausea/Vomiting Oxycodone/Acetaminophen (Percocet 5/325 Mg Tab) 2 tab PO Q4 PRN PRN Reason: Pain, moderate (4-7) Stop: 08/23/18 15:19 Last Admin: 08/21/18 08:46 Dose: 2 tab - Labs Labs: 08/21/18 04:35 08/21/18 04:35 PT 11.3 Seconds (9.8-13.1) 08/20/18 02:28 INR 1.0 08/20/18 02:28 APTT 20.8 Seconds (25.6-37.1) L 08/20/18 02:28
--- NOTE | 2018-08-21 09:50 | OBPPN ---
Datetime: 08/21/2018 09:42 PP Pain Prov: Within normal limits PP Pain Prov comment: Denies SOB chest or leg pains PP Nausea Prov: Denies PP BM Prov: No PP Breasts Prov: Normal PP Lungs Prov: Normal PP Abdomen/Uterus Prov: Abnormal PP Lochia Prov: Normal PP Vulva/Perineum Prov: Normal PP CVA Tenderness Prov: Normal PP Extremities Prov: Normal PP C/S Incision Prov: Normal PP Progress Prov: Not Applicable PP Comments Phys Exam Prov: Breast NT not engorged, Abd not distended dressing removed no active bl eeding or suppt Fundus firm at umb Ext no calf tenderness PP Plan Prov: Continue present management PP Impression Other Prov: cardio myopathy s/p c/S PP Progress Note Prov: Discussed with fluid power mechanic echo abnormal and he will place on meds and ok to transfer to ob floor Metal Bumper consult given for possible iron infussion Continue po care
[2018-08-21] MEDS ORDERED: Oxycodone/Acetaminophen 5/325 mg Tab PO PRN ×3 (09:52→14:04)
--- NOTE | 2018-08-21 11:11 | CP.PCM.CON ---
History of Present Illness - History of Present Illness History of Present Illness: This is a 32 yrs old female who had a C Section on 07/20/18.she is 3. Prior to surgery her hgb was 9.6gms. and after the procedure the hgb is 7.5gms.. Also after the surgery she had a ventricular ectopy and was transferred to ICU. She is doing well now, and is going to be transferred to a regular floor. I was asked to see her for the anemia. She has no shortness of breath at tgis time. Past Patient History - Past Medical History & Family History Past Medical History?: Yes - Past Social History Smoking Status: Never Smoked Chewing Tobacco Use: No Cigar Use: No Alcohol: None Drugs: Denies - CARDIAC Hx Cardiac Disorders: No Hx Hypertension: No - PULMONARY Hx Respiratory Disorders: No - NEUROLOGICAL Hx Neurological Disorder: No - HEENT Hx HEENT Problems: No - RENAL Hx Chronic Kidney Disease: No - ENDOCRINE/METABOLIC Hx Hyperthyroidism: Yes (Not on treatment) - HEMATOLOGICAL/ONCOLOGICAL Hx Blood Disorders: No - INTEGUMENTARY Hx Dermatological Problems: No - MUSCULOSKELETAL/RHEUMATOLOGICAL Hx Musculoskeletal Disorders: No - GASTROINTESTINAL Hx Gastrointestinal Disorders: No - GENITOURINARY/GYNECOLOGICAL Hx Genitourinary Disorders: No - PSYCHIATRIC Hx Depression: No - SURGICAL HISTORY Hx Surgeries: No - ANESTHESIA Hx Anesthesia: No Hx Anesthesia Reactions: No Meds Allergies/Adverse Reactions: Allergies Allergy/AdvReac Type Severity Reaction Status Date / Time No Known Allergies Allergy Verified 08/19/18 17:27 - Medications Medications: Current Medications Carvedilol (Coreg) 12.5 mg PO Q12 [facility] Last Admin: 08/21/18 10:58 Dose: 12.5 mg Iron Sucrose 200 mg/ Sodium (Chloride) 110 mls @ 220 mls/hr IVPB DAILY [facility] Ketorolac Tromethamine (Toradol) 30 mg IVP Q6 PRN PRN Reason: Pain, moderate (4-7) Losartan Potassium (Cozaar) 50 mg PO DAILY [facility] Last Admin: 08/21/18 10:59 Dose: 50 mg Ondansetron HCl (Zofran Inj) 4 mg IVP Q6 PRN PRN Reason: Nausea/Vomiting Oxycodone/Acetaminophen (Percocet 5/325 Mg Tab) 2 tab PO Q4 PRN PRN Reason: Pain, moderate (4-7) Stop: 08/23/18 15:19 Physical Exam - Additional Findings Additional findings: Physical exam; alert, well oriented in no acute distress neck; supple, no adenopathy Chest; Clear, no rales or rhonchi Heart; RSR, no murmur Abd; soft, no mass, no h/s megaly Results - Vital Signs Recent Vital Signs: Last Vital Signs Temp 98.4 F 08/21/18 08:00 Pulse 94 H 08/21/18 10:59 Resp 23 08/21/18 08:00 BP 135/71 08/21/18 10:59 Pulse Ox 95 08/21/18 08:00 - Labs Result Diagrams: 08/21/18 04:35 08/21/18 04:35 Labs: Laboratory Results - last 24 hr 08/20/18 08/21/18 08/21/18 11:35 04:35 04:35 WBC 12.5 H RBC 3.32 L Hgb 7.5 L Hct 24.6 L MCV 74.3 L D MCH 22.5 L MCHC 30.3 L RDW 17.6 H Plt Count 155 MPV 9.9 Neut % (Auto) 78.2 H Lymph % (Auto) 10.2 L [place] % (Auto) 10.2 H Eos % (Auto) 1.2 Baso % (Auto) 0.2 Neut # (Auto) 9.7 H Lymph # (Auto) 1.3 [place] # (Auto) 1.3 H Eos # (Auto) 0.1 Baso # (Auto) 0.0 Sodium 136 Potassium 3.7 Chloride 109 H Carbon Dioxide 23 Anion Gap 8 L BUN 4 L Creatinine 0.5 L Est GFR ( Amer) > 60 Est GFR (Non-Af Amer) > 60 POC Glucose (mg/dL) 105 Random Glucose 99 Calcium 8.1 L Phosphorus 4.2 Magnesium 1.6 Total Bilirubin 0.3 AST 24 ALT 26 Alkaline Phosphatase 115 Total Protein 5.6 L Albumin 2.5 L Globulin 3.1 Albumin/Globulin Ratio 0.8 L Free T4 08/21/18 10:04 WBC RBC Hgb Hct MCV MCH MCHC RDW Plt Count MPV Neut % (Auto) Lymph % (Auto) [place] % (Auto) Eos % (Auto) Baso % (Auto) Neut # (Auto) Lymph # (Auto) [place] # (Auto) Eos # (Auto) Baso # (Auto) Sodium Potassium Chloride Carbon Dioxide Anion Gap BUN Creatinine Est GFR ( Amer) Est GFR (Non-Af Amer) POC Glucose (mg/dL) Random Glucose Calcium Phosphorus Magnesium Total Bilirubin AST ALT Alkaline Phosphatase Total Protein Albumin Globulin Albumin/Globulin Ratio Free T4 0.76 L Assessment & Plan - Assessment and Plan (Free Text) Assessment: Impression; anemia secondary to acute bleed on chronic anemia from Plan: Plan; Will give venofer infusion 200 mg daily x 5days. - Date & Time Date: 08/21/18 Time: 11:19
--- NOTE | 2018-08-21 16:50 | CP.PCM.PN ---
Subjective - Date & Time of Evaluation Date of Evaluation: 08/21/18 Time of Evaluation: 07:55 - Subjective Subjective: 32 y/o F was seen and examined by bedside with Dr Vela. Pt reported feeling well, pumping breastmilk, tolerating PO, afebrile, lochias same as menses, passing gas with No acute events overnight. Objective - Vital Signs/Intake and Output Vital Signs (last 24 hours): Temp Pulse Resp BP Pulse Ox 98.8 F 85 18 134/87 95 08/21/18 12:00 08/21/18 12:00 08/21/18 12:00 08/21/18 12:00 08/21/18 12:00 Intake and Output: 08/21/18 08/21/18 06:59 18:59 Intake Total 1350 Output Total 2300 900 Balance -950 -900 - Medications Medications: Current Medications Carvedilol (Coreg) 12.5 mg PO Q12 [facility] Iron Sucrose 200 mg/ Sodium (Chloride) 110 mls @ 0 mls/hr IVPB DAILY [facility] Ibuprofen (Motrin Tab) 600 mg PO Q6 PRN PRN Reason: Pain, Mild (1-3) Ketorolac Tromethamine (Toradol) 30 mg IVP Q6 PRN PRN Reason: Pain, moderate (4-7) Losartan Potassium (Cozaar) 50 mg PO DAILY [facility] Ondansetron HCl (Zofran Inj) 4 mg IVP Q6 PRN PRN Reason: Nausea/Vomiting Oxycodone/Acetaminophen (Percocet 5/325 Mg Tab) 2 tab PO Q4 PRN PRN Reason: Pain, moderate (4-7) Stop: 08/23/18 15:19 Oxycodone/Acetaminophen (Percocet 5/325 Mg Tab) 1 tab PO ONCE PRN PRN Reason: Pain, moderate (4-7) Stop: 08/24/18 14:05 Last Admin: 08/21/18 14:27 Dose: 1 tab - Labs Labs: 08/21/18 04:35 08/21/18 04:35 PT 11.3 Seconds (9.8-13.1) 08/20/18 02:28 INR 1.0 08/20/18 02:28 APTT 20.8 Seconds (25.6-37.1) L 08/20/18 02:28 - Constitutional Appears: Well, No Acute Distress - Head Exam Head Exam: ATRAUMATIC, NORMAL INSPECTION - Eye Exam Eye Exam: EOMI, Normal appearance - ENT Exam ENT Exam: Mucous Membranes Moist - Neck Exam Neck Exam: Full ROM. absent: Meningismus - Respiratory Exam Respiratory Exam: Clear to Ausculation Bilateral, NORMAL BREATHING PATTERN - Cardiovascular Exam Cardiovascular Exam: +S1, +S2 - GI/Abdominal Exam GI & Abdominal Exam: Soft, Tenderness (mildly over and around incision. ). absent: Guarding, Rigid - Extremities Exam Extremities Exam: Full ROM. absent: Calf Tenderness - Neurological Exam Neurological Exam: Alert, Awake, Oriented x3 Assessment and Plan - Assessment and Plan (Free Text) Assessment: 32 y/o F had a yesterday is being evaluated for ventricular ectopy on EKG and possible post- cardiomyopathy. Dropping hemoglobin levels. PLAN: --F/U final echocardiogram --Cardiology on [facility], Dr Mary Gleason. --Hematology consult, Dr Katarzyna Gleason. --OBGYN on board, Dr Zhong. --Waiting for echocardiogram for further management. --Continue management as ordered. Case discussed with Dr Dane Castro, PGY-2
[2018-08-21] MEDS ORDERED: Simethicone 40 mg/0.6 ml Liquid (30 ml) PO PRN (19:41)
[2018-08-21] MEDS: Simethicone 80 mg Chewtab PO PRN (20:25)
--- NOTE | 2018-08-22 09:47 | CP.PCM.PN ---
Subjective - Date & Time of Evaluation Date of Evaluation: 08/22/18 Time of Evaluation: 09:43 - Subjective Subjective: Pt is feeling better, with the venofer first dose. Will continue to give the iron IV as long as she is in the hospital. Objective - Vital Signs/Intake and Output Vital Signs (last 24 hours): Temp Pulse Resp BP Pulse Ox 98.8 F 84 18 115/66 95 08/21/18 12:00 08/22/18 09:08 08/21/18 12:00 08/22/18 09:08 08/21/18 12:00 - Medications Medications: Current Medications Carvedilol (Coreg) 12.5 mg PO Q12 [facility] Last Admin: 08/22/18 09:07 Dose: 12.5 mg Docusate Sodium (Colace) 100 mg PO BID [facility] Last Admin: 08/22/18 09:08 Dose: 100 mg Iron Sucrose 200 mg/ Sodium (Chloride) 110 mls @ 0 mls/hr IVPB DAILY [facility] Ibuprofen (Motrin Tab) 600 mg PO Q6 PRN PRN Reason: Pain, Mild (1-3) Last Admin: 08/22/18 04:32 Dose: 600 mg Ketorolac Tromethamine (Toradol) 30 mg IVP Q6 PRN PRN Reason: Pain, moderate (4-7) Losartan Potassium (Cozaar) 50 mg PO DAILY [facility] Last Admin: 08/22/18 09:08 Dose: 50 mg Ondansetron HCl (Zofran Inj) 4 mg IVP Q6 PRN PRN Reason: Nausea/Vomiting Oxycodone/Acetaminophen (Percocet 5/325 Mg Tab) 2 tab PO Q4 PRN PRN Reason: Pain, moderate (4-7) Stop: 08/23/18 15:19 Oxycodone/Acetaminophen (Percocet 5/325 Mg Tab) 1 tab PO ONCE PRN PRN Reason: Pain, moderate (4-7) Stop: 08/24/18 14:05 Last Admin: 08/21/18 14:27 Dose: 1 tab Simethicone (Mylicon Chew Tab) 80 mg PO Q6 PRN PRN Reason: Flatulence Last Admin: 08/21/18 20:25 Dose: 80 mg - Labs Labs: 08/21/18 04:35 08/21/18 04:35 PT 11.3 Seconds (9.8-13.1) 08/20/18 02:28 INR 1.0 08/20/18 02:28 APTT 20.8 Seconds (25.6-37.1) L 08/20/18 02:28
--- NOTE | 2018-08-22 09:48 | CP.PCM.PN ---
Subjective - Date & Time of Evaluation Date of Evaluation: 08/22/18 Time of Evaluation: 09:00 - Subjective Subjective: The patient was found sitting up in a chair comfortably. She has tolerated combination off ARB and beta blockade quite well. Her heart rate was 80 bpm and her blood pressure was 116/70 mmHg. There was no evidence of volume overload in the form of a raised JVP or pedal edema or any rales. The patient will be receiving intravenous iron infusion for anemia. I have discussed her case with her kidney puller and she may be allowed to return home on present schedule of medications. I will see her as an outpatient. The patient and her understand that while on these medications she would not be breast feeding the baby. Objective - Vital Signs/Intake and Output Vital Signs (last 24 hours): Temp Pulse Resp BP Pulse Ox 98.8 F 84 18 115/66 95 08/21/18 12:00 08/22/18 09:08 08/21/18 12:00 08/22/18 09:08 08/21/18 12:00 - Medications Medications: Current Medications Carvedilol (Coreg) 12.5 mg PO Q12 [facility] Last Admin: 08/22/18 09:07 Dose: 12.5 mg Docusate Sodium (Colace) 100 mg PO BID [facility] Last Admin: 08/22/18 09:08 Dose: 100 mg Iron Sucrose 200 mg/ Sodium (Chloride) 110 mls @ 0 mls/hr IVPB DAILY [facility] Ibuprofen (Motrin Tab) 600 mg PO Q6 PRN PRN Reason: Pain, Mild (1-3) Last Admin: 08/22/18 04:32 Dose: 600 mg Ketorolac Tromethamine (Toradol) 30 mg IVP Q6 PRN PRN Reason: Pain, moderate (4-7) Losartan Potassium (Cozaar) 50 mg PO DAILY [facility] Last Admin: 08/22/18 09:08 Dose: 50 mg Ondansetron HCl (Zofran Inj) 4 mg IVP Q6 PRN PRN Reason: Nausea/Vomiting Oxycodone/Acetaminophen (Percocet 5/325 Mg Tab) 2 tab PO Q4 PRN PRN Reason: Pain, moderate (4-7) Stop: 08/23/18 15:19 Oxycodone/Acetaminophen (Percocet 5/325 Mg Tab) 1 tab PO ONCE PRN PRN Reason: Pain, moderate (4-7) Stop: 08/24/18 14:05 Last Admin: 08/21/18 14:27 Dose: 1 tab Simethicone (Mylicon Chew Tab) 80 mg PO Q6 PRN PRN Reason: Flatulence Last Admin: 08/21/18 20:25 Dose: 80 mg - Labs Labs: 08/21/18 04:35 08/21/18 04:35 PT 11.3 Seconds (9.8-13.1) 08/20/18 02:28 INR 1.0 08/20/18 02:28 APTT 20.8 Seconds (25.6-37.1) L 08/20/18 02:28
--- NOTE | 2018-08-22 10:16 | OBPPN ---
Datetime: 08/22/2018 10:10 PP Pain Prov: Within normal limits PP Pain Prov comment: No sob, chest or leg pains PP Nausea Prov: Denies PP BM Prov: Yes PP Breasts Prov: Normal PP Lungs Prov: Normal PP Abdomen/Uterus Prov: Abnormal PP Lochia Prov: Normal PP Vulva/Perineum Prov: Normal PP CVA Tenderness Prov: Normal PP Extremities Prov: Normal PP C/S Incision Prov: Normal PP Progress Prov: Not Applicable PP Comments Phys Exam Prov: breast not engorged NT; Abd soft ND fundus firm below the umb, incision clean and dry no sign of infection. Ext no calf tenderness PP Plan Prov: Continue present management PP Impression Other Prov: maternal cardiomyopathy, anemia PP Progress Note Prov: Discussed with diabetes physician and will continue present management Had iron in fusion and continue po care OOB and ambulation IP PP Procedures: None Vital Signs Provider PP: Reviewed
[2018-08-22] MEDS: Simethicone 80 mg Chewtab PO PRN (16:26)
--- NOTE | 2018-08-22 20:24 | CP.PCM.CON ---
History of Present Illness - History of Present Illness History of Present Illness: 32 y/o F with NO PMHX presented ventricular ectopy on EKG during labor. C- section was performed on 08/20/18. Pt denies chest pain, SOB, palpitations, dizziness or visual disturbances. No family Hx of cardiac disease. Pt was seen a nd examined by bedside with Dr Vela. Pt reported feeling well, pumping breastmilk, tolerating PO, afebrile, lochias same as menses, passing gas with No acute events overnight. Review of Systems - Constitutional Constitutional: absent: Chills, Fever - EENT Eyes: absent: Diplopia, Discharge, Exophthalmos Nose/Mouth/Throat: absent: Nasal Congestion, Dry Mouth, Odynophagia, Tongue Swelling, Neck Mass - Cardiovascular Cardiovascular: absent: Chest Pain, Chest Pain at Rest, Claudication, Palpitations - Respiratory Respiratory: absent: Cough, Dyspnea, Wheezing - Genitourinary Genitourinary: absent: Dysuria, Hematuria, Pyuria - Musculoskeletal Musculoskeletal: absent: Arthralgias, Muscle Cramps - Integumentary Integumentary: absent: Change in Hair, Photosensitivity, Pruritus, Rash Past Patient History - Past Medical History & Family History Past Medical History?: Yes - Past Social History Smoking Status: Never Smoked Chewing Tobacco Use: No Cigar Use: No Alcohol: None Drugs: Denies - CARDIAC Hx Cardiac Disorders: No Hx Hypertension: No - PULMONARY Hx Respiratory Disorders: No - NEUROLOGICAL Hx Neurological Disorder: No - HEENT Hx HEENT Problems: No - RENAL Hx Chronic Kidney Disease: No - ENDOCRINE/METABOLIC Hx Hyperthyroidism: Yes (Not on treatment) - HEMATOLOGICAL/ONCOLOGICAL Hx Blood Disorders: No - INTEGUMENTARY Hx Dermatological Problems: No - MUSCULOSKELETAL/RHEUMATOLOGICAL Hx Musculoskeletal Disorders: No - GASTROINTESTINAL Hx Gastrointestinal Disorders: No - GENITOURINARY/GYNECOLOGICAL Hx Genitourinary Disorders: No - PSYCHIATRIC Hx Depression: No - SURGICAL HISTORY Hx Surgeries: No - ANESTHESIA Hx Anesthesia: No Hx Anesthesia Reactions: No Meds Allergies/Adverse Reactions: Allergies Allergy/AdvReac Type Severity Reaction Status Date / Time No Known Allergies Allergy Verified 08/19/18 17:27 - Medications Medications: Current Medications Carvedilol (Coreg) 12.5 mg PO Q12 [facility] Last Admin: 08/22/18 09:07 Dose: 12.5 mg Docusate Sodium (Colace) 100 mg PO BID [facility] Last Admin: 08/22/18 16:25 Dose: 100 mg Iron Sucrose 200 mg/ Sodium (Chloride) 110 mls @ 0 mls/hr IVPB DAILY [facility] Last Admin: 08/22/18 09:57 Dose: 100 mls/hr Ibuprofen (Motrin Tab) 600 mg PO Q6 PRN PRN Reason: Pain, Mild (1-3) Last Admin: 08/22/18 12:54 Dose: 600 mg Ketorolac Tromethamine (Toradol) 30 mg IVP Q6 PRN PRN Reason: Pain, moderate (4-7) Losartan Potassium (Cozaar) 50 mg PO DAILY [facility] Last Admin: 08/22/18 09:08 Dose: 50 mg Ondansetron HCl (Zofran Inj) 4 mg IVP Q6 PRN PRN Reason: Nausea/Vomiting Oxycodone/Acetaminophen (Percocet 5/325 Mg Tab) 2 tab PO Q4 PRN PRN Reason: Pain, moderate (4-7) Stop: 08/23/18 15:19 Oxycodone/Acetaminophen (Percocet 5/325 Mg Tab) 1 tab PO ONCE PRN PRN Reason: Pain, moderate (4-7) Stop: 08/24/18 14:05 Last Admin: 08/21/18 14:27 Dose: 1 tab Simethicone (Mylicon Chew Tab) 80 mg PO Q6 PRN PRN Reason: Flatulence Last Admin: 08/22/18 16:26 Dose: 80 mg Physical Exam - Additional Findings Additional findings: - Constitutional Appears: Well, No Acute Distress - Head Exam Head Exam: ATRAUMATIC, NORMAL INSPECTION - Eye Exam Eye Exam: EOMI, Normal appearance - ENT Exam ENT Exam: Mucous Membranes Moist - Neck Exam Neck Exam: Full ROM. absent: Meningismus - Respiratory Exam Respiratory Exam: Clear to Ausculation Bilateral, NORMAL BREATHING PATTERN - Cardiovascular Exam Cardiovascular Exam: +S1, +S2 - GI/Abdominal Exam GI & Abdominal Exam: Soft, Tenderness (mildly over and around incision. ). absent: Guarding, Rigid - Extremities Exam Extremities Exam: Full ROM. 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 Dropping hemoglobin levels. PLAN: --F/U final echocardiogram --Cardiology on borad, Dr Mary Gleason. --Hematology consult, Dr Katarzyna Gleason. --OBGYN on board, Dr Zhong. --Waiting for echocardiogram for further management. --Continue management as ordered. Case discussed with Dr Dane Castro, PGY-2 - Date & Time Date: 08/21/18 Time: 08:55
--- NOTE | 2018-08-23 07:44 | OBPPN ---
Datetime: 08/23/2018 07:37 PP Pain Prov: Within normal limits PP Pain Prov comment: no SOB chest or leg pains PP Nausea Prov: Denies PP BM Prov: Yes PP Breasts Prov: Normal PP Lungs Prov: Normal PP Abdomen/Uterus Prov: Abnormal PP Lochia Prov: Normal PP Vulva/Perineum Prov: Normal PP CVA Tenderness Prov: Normal PP Extremities Prov: Normal PP C/S Incision Prov: Normal PP Progress Prov: Not Applicable PP Comments Phys Exam Prov: breast NT, not engorged Abd soft ND fundus firm below the umb Incision c lean and dry no suppt or discharge Ext no calf tenderness PP Plan Prov: Discharge PP Impression Other Prov: maternal cardiomyopathy Anemia PP Progress Note Prov: 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
--- NOTE | 2018-08-23 07:47 | OBDCSUM ---
Datetime: 08/23/2018 07:42 Discharged to, Provider: Home Follow up at, Provider: Dr Zhong Disch Instr Activity: Bedrest; May be up to bathroom; May be up for meals; May Shower Disch Instr Diet: Restricted, specify Discharge Diet restrict Prov: low sodium Discharge Instructions, Provider: Specific instructions as noted Discharge Diagnosis, Provider: Term Delivered Discharge Time: 08/23/2018 07:42 Follow up in weeks, Provider: 1 wk Contraception discussed, Prov: Yes Disch Activity Restrictions: No exercising; No lifting; No driving; Minimize walking; Minimize stair -climbing; No sexual activity; Nothing in vagina - [place], tampons, douche Discharge Comment, Provider: Continue cardiac meds as per cardiollogist and will follow with him 2 w ks and continue PNC vit and iron Discharge Diagnosis Prov Other: maternal cardiopathy; Anemia Contraception after Delivery: Undecided
--- NOTE | 2018-08-23 08:33 | PN ---
DATE: 08/22/2018 SUBJECTIVE: The patient is seen and examined. Interim events noted. Consults noted and appreciated. Cardiology, Hematology, and TILE LAYER HELPER followup and intervention noted and appreciated. The patient is now back in obstetrics floor, awake and responsive. Feels okay. Denies any chest pain. No shortness of breath or palpitation. The patient was able to ambulate without any shortness of breath or any symptoms. PHYSICAL EXAMINATION: GENERAL: The patient is in no acute distress. VITAL SIGNS: Stable. HEART: S1 and S2, normal and regular. LUNGS: Good bilateral air exchange. ABDOMEN: Soft and nontender. EXTREMITIES: No edema. No calf swelling. No tenderness. No acute ischemia. CENTRAL NERVOUS SYSTEM: Essentially unchanged. DIAGNOSTIC DATA: Available diagnostic data reviewed. Echocardiogram showed mildly depressed left ventricular systolic function with ejection fraction about 40 to 45%, consistent with cardiomyopathy. ASSESSMENT AND PLAN: Plan as ordered. Case and plan discussed with the patient. Luisito Vela MD
[2018-08-23 09:03] VITALS: BP 126/64; PULSE 84
[2018-08-23 09:36] LABS: HEMOGLOBIN 7.6 g/dL (12.0-16.0); MEAN CORPUSCULAR HEMOGLOBIN 23.3 pg (27.0-31.0); MEAN CORPUSCULAR HGB CONC 30.2 g/dL (33.0-37.0); RBC 3.25 Mil/uL (3.80-5.20); RED CELL DISTRIBUTION WIDTH 18.3 % (11.5-14.5)
[2018-08-23 10:12] LABS: BLOOD UREA NITROGEN 6 mg/dl (7-17); CALCIUM 8.4 mg/dL (8.4-10.2); GFR NON-AFRICAN AMERICAN > 60
[2018-08-23 18:51] VITALS: RESP 20; TEMP 98.4; O2SAT 99
== END 2018-08-23 14:20 | disposition home or self-care (01) | DRG 540 ==
LOC: H.EROB2 17:00 → H.L&D 17:39 → H.ICU/CCU 08-20 01:42 → H.OB/GYN 08-21 12:50
PROVIDERS: ADMIT Specialist; ATTEND Specialist
PROC: 4A1HXCZ Monitoring of Products of Conception, Cardiac Rate, External Approach (ICD-10-PCS; 2018-08-19)
PROC: 10D00Z1 Extraction of Products of Conception, Low, Open Approach (ICD-10-PCS; principal; 2018-08-20)
DX: O90.3 Peripartum cardiomyopathy (principal); O75.89 Other specified complications of labor and delivery; D62 Acute posthemorrhagic anemia; I49.3 Ventricular premature depolarization; O99.02 Anemia complicating childbirth; D50.8 Other iron deficiency anemias; O99.284 Endocrine, nutritional and metabolic diseases complicating childbirth; Z37.0 Single live birth; Z3A.39 39 weeks gestation of pregnancy